=== PATIENT | male | born 1995 | race African-American/Black ===

== ENCOUNTER 2017-01-21 17:05 | Emergency (ER) | payer OTHER ==
--- NOTE | ~2017-01-21 | CR181 ---
[facility] A Service of [facility] RADIOLOGY TEXT RESULTS PATIENT: DELIA YEPEZ LOCATION: [place] : [birth year] UNIT #: [id number] AGE: [address]: Jennifer Estrada SEX: M ORDER DR: [id number] [facility] [address] [place], [place] [address] [id number] MR#: [id number] Acc #: [id number] NAME: DELIA YEPEZ. : 1995 SEX: M STUDY DATE/TIME: 01/21/2017 18:38 UNIT: [facility] ROOM: STUDY DESCRIPTION: CR Lumbar Spine 2 or 3 Views Attending Physician: Jennifer Estrada P.A.-C. Ordering Physician: Jennifer Estrada P.A.-C. Primary Care Physician: Carlos Roman M.D. MEDICAL IMAGING REPORT This report is preliminary unless electronic signature is present EXAM Lumbar spine series. INDICATIONS Lower back pain after a fall yesterday. PROCEDURE Four views of the lumbar spine. COMPARISON None. FINDINGS Lumbar bodies have normal height. Alignment is preserved. Disc spaces are preserved. IMPRESSION No acute findings. Dictated by... Quinn Turner M.D. THIS IS AN ELECTRONICALLY VERIFIED REPORT Quinn Turner M.D. at 01/22/2017 2:31 PM [email or web address]/[email or web address] TD: 01/21/2017 23:52 JOB #: [id number] MEDICAL IMAGING REPORT Page 1 of 1 COPY
[~2017-01-21 17:05] MED LIST: AZITHROMYCIN250 MG PO; BENZONATATE PO; CATAFLAM50 MG PO; DICLOFENAC PO; FLONASE 0.05% N16 G1; LORTAB 5/500 TA1 TA2 PO; PREDNISONE PO; VICODIN 5/1 TAB 5/50 PO
== END 2017-01-21 19:09 | disposition home or self-care (01) ==
LOC: CED 17:05 → CFTX 17:05
DX: S33.5XXA Sprain of ligaments of lumbar spine, initial encounter (principal); S39.012A Strain of muscle, fascia and tendon of lower back, initial encounter; W10.9XXA Fall (on) (from) unspecified stairs and steps, initial encounter; Y92.9 Unspecified place or not applicable
CPT/HCPCS: 72100; 96372; 99283; J1885